=== PATIENT | female | born 1965 | race Caucasian/White ===

== ENCOUNTER → 2022-01-22 | Outpatient (CLI) | payer BC | LOC: MC.RAD 06:54 | DX: Z12.31 Encounter for screening mammogram for malignant neoplasm of breast (principal) ==

== ENCOUNTER 2022-02-13 16:30 | Outpatient (RCR) | payer BC | END 2022-02-18 | disposition home or self-care (01) | LOC: WSPT | DX: S93.409D Sprain of unspecified ligament of unspecified ankle, subsequent encounter (principal); X58.XXXD Exposure to other specified factors, subsequent encounter ==